=== PATIENT | female | born 1935 | race Caucasian/White ===

== ENCOUNTER 2018-09-16 13:48 | Emergency (ER) | payer OTHER ==
[2018-09-16 13:56] VITALS: BMI 21.4
[2018-09-16 15:47] LABS: BASO % 0.6 % (0-2.0); EOS % 0.1 % (0-4.5); HEMATOCRIT 39.4 % (32.4-45.2); HEMOGLOBIN 13.3 GM/dL (10.7-15.3); LYMPH % 14.1 % (8-40); MCHC 33.7 g/dl (32.0-36.0); MEAN CELL VOLUME 91.9 fl (80-96); MEAN PLT VOLUME 8.4 fl (7.5-11.1); MONO % 8.2 % (3.8-10.2); PLATELET COUNT 216 K/MM3 (134-434); RBC 4.29 M/mm3 (3.60-5.2); RDW 12.6 % (11.6-15.6); WHITE BLOOD COUNT 6.7 K/mm3 (4.0-10.0)
--- NOTE | 2018-09-16 16:14 | PDOC ---
History of Present Illness - General Chief Complaint: Nasal Bleeding Stated Complaint: NOSE BLEED Time Seen by Provider: 09/16/18 14:37 History Source: Patient Exam Limitations: No Limitations - History of Present Illness Initial Comments: 09/16/18 16:42 83f with pmh of hypothyroidism presents to the ED for now-resolved nosebleed of the left nare. Started this morning after she blew her nose. Upon the bleed non- stopping, she went to urgent care. by that time the bleeding had stopped but she was recommended to go to the ER just to be safe. No asymptomatic. Last episode of nose bleed was when she was many decades ago. Past History - Past Medical History Allergies/Adverse Reactions: Allergies Allergy/AdvReac Type Severity Reaction Status Date / Time No Known Allergies Allergy Verified 09/16/18 13:55 Home Medications: Ambulatory Orders Levothyroxine [Synthroid -] 75 mcg PO DAILY 09/16/18 COPD: No - Suicide/Smoking/Psychosocial Hx Smoking History: Never smoked Review of Systems - Review of Systems Able to Perform ROS?: Yes Is the patient limited Scottish proficient: No Constitutional: No: Symptoms Reported HEENTM: No: Symptoms Reported Respiratory: No: Symptoms reported Cardiac (ROS): No: Symptoms Reported ABD/GI: No: Symptoms Reported : No: Symptoms Reported Integumentary: No: Symptoms Reported, Erythema Neurological: No: Symptoms reported *Physical Exam - Vital Signs Last Vital Signs Temp Pulse Resp BP Pulse Ox 98 F 95 H 18 143/86 99 09/16/18 13:52 09/16/18 13:52 09/16/18 13:52 09/16/18 13:52 09/16/18 13:52 - Physical Exam General Appearance: Yes: Nourished, Appropriately Dressed. No: Apparent Distress HEENT: positive: EOMI, EDELMIRA, Other (dried blood in the left nare. ) Respiratory/Chest: positive: Lungs Clear, Normal Breath Sounds. negative: Chest Tender, Respiratory Distress Cardiovascular: positive: Regular Rhythm, Regular Rate, S1, S2 Gastrointestinal/Abdominal: positive: Normal Bowel Sounds, Flat, Soft. negative : Tender Musculoskeletal: positive: Normal Inspection. negative: CVA Tenderness Extremity: positive: Normal Capillary Refill, Normal Inspection, Normal Range of Motion Integumentary: positive: Normal Color, Dry, Warm Neurologic: positive: Fully Oriented, Alert, Normal Mood/Affect, Normal Response , Motor Strength /5 ED Treatment Course - LABORATORY CBC & Chemistry Diagram: 09/16/18 15:36 - ADDITIONAL ORDERS Additional order review: 09/16/18 15:36 RBC 4.29 MCV 91.9 MCHC 33.7 RDW 12.6 MPV 8.4 Neutrophils % 77.0 Lymphocytes % 14.1 Monocytes % 8.2 Eosinophils % 0.1 Basophils % 0.6 Medical Decision Making - Medical Decision Making 09/16/18 16:47 83F with resolved epistaxis. CBC negative for anemia. Will give patient recommendations for next episode as well as ENT referral. *DC/Admit/Observation/Transfer Diagnosis at time of Disposition: Epistaxis not due to trauma - Discharge Dispostion Disposition: HOME Condition at time of disposition: Improved Decision to Admit order: No - Referrals Referrals: Tash Acosta MD [Primary Care Provider] - Girma Cuellar MD [Staff Physician] - - Patient Instructions Printed Discharge Instructions: DI for Nosebleed Additional Instructions: Follow up with Dr. Cuellar, ENT within the next 4 days. Come back to the ER for any new, worsening or concerning symptoms. If nosebleed resumes, apply pressure for 5 minutes. Use vaseline to keep area from drying up. - Post Discharge Activity
--- NOTE | 2018-09-16 16:31 | PDOC ---
Attending Attestation - Resident Resident Name: Mina Leavitt - ED Attending Attestation I have performed the following: I have examined & evaluated the patient, The case was reviewed & discussed with the resident, I agree w/resident's findings & plan, Exceptions are as noted - HPI HPI: 09/16/18 16:29 83yo F hx hypothyroidsim presents to the ED with resolved nose bleed. Pt reports a nose bleed this morning after she was picking her nose. She then tried to blow her nose and the bleed got worse with clots prompting her to go to urgent care. The bleed lasted for about 3 hours and resolved on its own without intervention at urgent care. She presents to the ED because the clinician at urgent care stated to present to the ED to make sure she did not swallow too much blood. Pt currently feels well, has no complaints. Does not take any anticoagulation, takes an aspirin once in a while for headaches, most recently 1 week ago. Denies recent fevers, chills, cp, sob, abd pain, n/v/d, headache, trauma, weakness, dizziness. - Physicial Exam PE: 09/16/18 16:57 GENERAL: Awake, alert, and fully oriented, in no acute distress HEAD: No signs of trauma EYES: PERRLA, EOMI, sclera anicteric, conjunctiva clear ENT: +dried blood in L nare, no active bleeding, no bleeding in posterior OP LUNGS: Breath sounds equal, clear to auscultation bilaterally. No wheezes, and no crackles HEART: Regular rate and rhythm, normal S1 and S2, no murmurs, rubs or gallops ABDOMEN: Soft, nontender, normoactive bowel sounds. No guarding, no rebound. No masses EXTREMITIES: Normal range of motion, no edema. No clubbing or cyanosis. No cords, erythema, or tenderness NEUROLOGICAL: Normal speech, cranial nerves intact, 5/5 strength in all 4 extremities, normal sensation to light touch in all 4 extremities, normal gait SKIN: Warm, Dry, normal turgor, no rashes or lesions noted. - Medical Decision Making 09/16/18 17:00 83yo F hx hypothyroidism presents to the ED with resolved epistaxis 2/2 nose picking. Vitals wnl. Exam wnl. Pt feels well, requests DC home I discussed the physical exam findings, ancillary test results and final diagnoses with the patient. I answered all of the patient's questions. The patient was satisfied with the care received and felt comfortable with the discharge plan and treatment plan. The patient will call their primary care physician within 24 hours to arrange follow-up and will return to the Emergency Department with any new, persistent or worsening symptoms.
[2018-09-16 16:58] VITALS: BP 120/74; PULSE 80; TEMP 98.1
== END 2018-09-16 16:58 | disposition home or self-care (01) ==
LOC: JER 13:48
DX: R04.0 Epistaxis (principal); E03.9 Hypothyroidism, unspecified
CPT/HCPCS: 36415; 85025; 99283-25

== ENCOUNTER 2019-09-09 02:36 | Observation (INO) | payer OTHER ==
--- NOTE | 2019-09-09 03:37 | PDOC ---
Attending Attestation - Resident Resident Name: Sarita Mason - ED Attending Attestation I have performed the following: I have examined & evaluated the patient, The case was reviewed & discussed with the resident, I agree w/resident's findings & plan
--- NOTE | 2019-09-09 03:42 | PDOC ---
History of Present Illness - General Chief Complaint: Chest Pain Stated Complaint: CHEST PAIN History Source: Patient, Family - History of Present Illness Initial Comments: 09/09/19 03:37 84 yo F PMH of hypothyroidism presents to ED for sudden onset chest pain. pt states the chest pain began around 12 am it was sudden onset. pt describes it as sharp stabbing pain, non radiating. she states she also feels short of breath and wheezing. the shortness of breath began earlier in the evening. pt states that the chest pain only lasted a few minutes but the shortness of breath persisted. pt endorses orthopnea and dyspnea on exertion. Pt states she was at her rn care transition office this week and they sent her home with shelter monitor, she has not yet received those results. 09/09/19 03:43 Past History - Past Medical History Allergies/Adverse Reactions: Allergies Allergy/AdvReac Type Severity Reaction Status Date / Time No Known Allergies Allergy Verified 09/09/19 02:50 Home Medications: Ambulatory Orders Levothyroxine [Synthroid -] 75 mcg PO DAILY 09/16/18 COPD: No - Psycho Social/Smoking Cessation Hx Smoking History: Never smoked Have you smoked in the past 12 months: No Information on smoking cessation initiated: No Hx Alcohol Use: No Drug/Substance Use Hx: No Review of Systems - Review of Systems Able to Perform ROS?: Yes Constitutional: No: Chills, Fever Respiratory: Yes: Shortness of Breath, Wheezing. No: Productive cough Cardiac (ROS): Yes: Chest Pain. No: Lightheadedness ABD/GI: Yes: Abdominal Distended. No: Constipated, Diarrhea, Nausea, Vomiting Neurological: No: Headache, Dizziness *Physical Exam - Vital Signs Last Vital Signs Temp Pulse Resp BP Pulse Ox 97.2 F L 85 18 150/99 96 09/09/19 02:50 09/09/19 02:50 09/09/19 02:50 09/09/19 02:50 09/09/19 02:50 - Physical Exam General Appearance: Yes: Nourished, Appropriately Dressed HEENT: positive: EOMI, Normal Voice, Other (poor dentation) Respiratory/Chest: positive: Decreased Breath Sounds (at bases ). negative: Accessory Muscle Use, Crackles, Wheezing Cardiovascular: positive: Regular Rhythm, Regular Rate, S1, S2, JVD Gastrointestinal/Abdominal: positive: Soft, Protuberent. negative: Tender, Distended Extremity: positive: Normal Inspection Integumentary: positive: Normal Color, Dry, Warm Neurologic: positive: Fully Oriented ED Treatment Course - LABORATORY CBC & Chemistry Diagram: 09/09/19 04:24 09/09/19 04:24 - RADIOLOGY Radiology Studies Ordered: Category Date Time Status CHEST X-RAY PORTABLE* [RAD] Stat Radiology 09/09/19 03:28 Ordered Medical Decision Making - Medical Decision Making 09/09/19 03:42 84 yo F presenting with cp and shortness of breath r/o ACS -cardiac profile, EKG -CXR -CBC, CMP, Mg, Phos -TSH 09/09/19 03:43 09/09/19 04:48 -cbc reviewed, no leukocytosis 09/09/19 05:27 -bnp 691 -cxr reviewed -tele obs Discharge - Follow up/Referral Referrals: Tash Acosta MD [Primary Care Provider] - - Patient Discharge Instructions - Post Discharge Activity
[2019-09-09 04:32] LABS: BASO % 0.7 % (0-2.0); EOS % 0.5 % (0-4.5); HEMATOCRIT 37.1 % (32.4-45.2); HEMOGLOBIN 12.6 GM/dL (10.7-15.3); LYMPH % 16.2 % (8-40); MCH 31.4 pg (25.7-33.7); MCHC 34.1 g/dl (32.0-36.0); MEAN CELL VOLUME 92.2 fl (80-96); MEAN PLT VOLUME 8.2 fl (7.5-11.1); MONO % 7.1 % (3.8-10.2); NEUT % 75.5 % (42.8-82.8); PLATELET COUNT 223 K/MM3 (134-434); RBC 4.02 M/mm3 (3.60-5.2); RDW 12.4 % (11.6-15.6); WHITE BLOOD COUNT 8.5 K/mm3 (4.0-10.0)
[2019-09-09 05:02] LABS: ALBUMIN 3.6 g/dl (3.4-5.0); BILIRUBIN,TOTAL 0.8 mg/dL (0.2-1); BLOOD UREA NITROGEN 9.6 mg/dL (7-18); CALCIUM 9.2 mg/dL (8.5-10.1); CREATININE 0.6 mg/dL (0.55-1.3); MAGNESIUM 1.8 mg/dL (1.8-2.4); PHOSPHOROUS 2.7 mg/dL (2.5-4.9); POTASSIUM 4.1 mmol/L (3.5-5.1); TOT PROT 7.3 g/dl (6.4-8.2)
--- NOTE | 2019-09-09 05:51 | HP ---
Admitting History and Physical - Primary Care Physician PCP: Tash Acosta - Admission Chief Complaint: Chest Pain, SOB History of Present Illness: This is a 84 y/o woman with a PMhx of Hypothyroidism. Who presents to the ED with chest pain and SOB x am. Patient reports having left sided chest pain non- radiating with, belching, SOB, worse on exertion, before going to bed last night. She describes the pain as sharp, lasting for 5 minutes. Patient reports having BOYCE after walking a few blocks. Patient reports having the pain in the past but did not recall the date. Patient reports having a holter monitor last week for chest pain, but has not received the results. Patient denies fever, chills, dizziness, ANNE, palpitations, AP, N/V/D, melena, hematochezia, dysuria. History Source: Patient Limitations to Obtaining History: No Limitations - Past Medical History Endocrine: Yes: Hypothyroidism - Smoking History Smoking history: Never smoked Have you smoked in the past 12 months: No - Alcohol/Substance Use Hx Alcohol Use: No History of Substance Use: reports: None - Social History Usual Living Arrangement: Yes: With Spouse ADL: Independent History of Recent Travel: No Home Medications - Allergies Allergies/Adverse Reactions: Allergies Allergy/AdvReac Type Severity Reaction Status Date / Time No Known Allergies Allergy Verified 09/09/19 02:50 - Home Medications Home Medications: Ambulatory Orders Levothyroxine [Synthroid -] 75 mcg PO DAILY 09/16/18 Home Medications (free text): Mc Red 1 tablet po daily. Calcium Chewable 500mg po daily Family Medical History Family Hx Nuerologic Problems: Mother (Alzhemier's), Father (Alzheimer's) Review of Systems - Review of Systems Constitutional: reports: No Symptoms Eyes: reports: No Symptoms HENT: reports: No Symptoms Neck: reports: No Symptoms Cardiovascular: reports: Chest Pain, Edema, Shortness of Breath Respiratory: reports: SOB, SOB on Exertion Gastrointestinal: reports: Indigestion Genitourinary: reports: No Symptoms Breasts: reports: No Symptoms Reported Musculoskeletal: reports: No Symptoms Integumentary: reports: No Symptoms Neurological: reports: No Symptoms Endocrine: reports: No Symptoms Hematology/Lymphatic: reports: No Symptoms Psychiatric: reports: No Symptoms Pain Intensity: 5 Physical Examination Vital Signs: Vital Signs Temperature 97.2 F L 09/09/19 02:50 Pulse Rate 85 09/09/19 02:50 Respiratory Rate 18 09/09/19 02:50 Blood Pressure 150/99 09/09/19 02:50 O2 Sat by Pulse Oximetry (%) 96 09/09/19 02:50 Constitutional: Yes: No Distress, Calm, Thin Eyes: Yes: WNL, Conjunctiva Clear, EOM Intact HENT: Yes: WNL, Atraumatic, Normocephalic Neck: Yes: WNL, Supple, Trachea Midline Cardiovascular: Yes: WNL, Regular Rate and Rhythm, S1, S2 Respiratory: Yes: Rhonchi (RUL), SOB on Exertion Gastrointestinal: Yes: WNL, Normal Bowel Sounds, Soft Renal/: Yes: WNL Breast(s): Yes: WNL Musculoskeletal: Yes: WNL Extremities: Yes: WNL Edema: Yes Edema: LLE: 1+, RLE: Trace Peripheral Pulses WNL: Yes Neurological: Yes: WNL, Alert, Oriented, Cran Nerves II-XII Intact ...Motor Strength: WNL Psychiatric: Yes: WNL, Alert, Oriented Labs: CBC, BMP 09/09/19 04:24 09/09/19 04:24 Laboratory Results - last 24 hr 09/09/19 09/09/19 09/09/19 04:24 04:24 04:24 WBC 8.5 RBC 4.02 Hgb 12.6 Hct 37.1 MCV 92.2 MCH 31.4 MCHC 34.1 RDW 12.4 Plt Count 223 MPV 8.2 Absolute Neuts (auto) 6.4 Neutrophils % 75.5 Lymphocytes % 16.2 Monocytes % 7.1 Eosinophils % 0.5 D Basophils % 0.7 Nucleated RBC % 0 Sodium 132 L Potassium 4.1 Chloride 99 Carbon Dioxide 28 Anion Gap 5 L BUN 9.6 Creatinine 0.6 Est GFR (CKD-EPI)AfAm 96.33 Est GFR (CKD-EPI)NonAf 83.11 Random Glucose 109 H Calcium 9.2 Phosphorus 2.7 Magnesium 1.8 Total Bilirubin 0.8 AST 28 ALT 24 Alkaline Phosphatase 79 Creatine Kinase 179 Creatine Kinase Index 4.8 CK-MB (CK-2) 8.6 H Troponin I < 0.02 B-Natriuretic Peptide Total Protein 7.3 Albumin 3.6 TSH 1.50 09/09/19 04:24 WBC RBC Hgb Hct MCV MCH MCHC RDW Plt Count MPV Absolute Neuts (auto) Neutrophils % Lymphocytes % Monocytes % Eosinophils % Basophils % Nucleated RBC % Sodium Potassium Chloride Carbon Dioxide Anion Gap BUN Creatinine Est GFR (CKD-EPI)AfAm Est GFR (CKD-EPI)NonAf Random Glucose Calcium Phosphorus Magnesium Total Bilirubin AST ALT Alkaline Phosphatase Creatine Kinase Creatine Kinase Index CK-MB (CK-2) Troponin I B-Natriuretic Peptide 691.0 H Total Protein Albumin TSH Current Medications Generic Name Dose Route Start Last Admin Trade Name Freq PRN Reason Stop Dose Admin Aspirin 81 mg 09/09/19 10:00 Asa - PO DAILY BENJA Levothyroxine Sodium 75 mcg 09/09/19 07:00 Synthroid - PO DAILY@0700 BENJA Imaging - Results Chest X-ray: Image Reviewed EKG: Image Reviewed Problem List - Problems (1) Chest pain Assessment/Plan: r/o ACS Heart Score 4 Serial Enzymes, negx1 Appreciate Cardiology consult Asa 181mg taken before arrival to ED Asa EKG- SR with TWI lead III, AVF, no available study to compare Echo was done recently per patient Obtain Holter Monitor and Echo results from pts [employer] Observer- Dr. Lucero Johnson Chest Xray image reviewed Code(s): R07.9 - CHEST PAIN, UNSPECIFIED (2) Hypothyroidism Assessment/Plan: stable TSH 1.5 Continue Levothyroxine Code(s): E03.9 - HYPOTHYROIDISM, UNSPECIFIED Assessment/Plan This is a 84 y/o woman with a PMHx of Hypothroidism. placed in Telemetry Observation for Chest Pain r/o ACS for further evaluation of their emergent condition. Plan: See Problem List FEN Po fluids as tolerated Replete lytes prn Regular Diet DVT ppx OOB SCDs Consider AC if LOS > 48 hrs Code Status: Full Code Dispo: Observation Visit type - Emergency Visit Emergency Visit: Yes ED Registration Date: 09/09/19 Care time: The patient presented to the Emergency Department on the above date and was hospitalized for further evaluation of their emergent condition. - New Patient This patient is new to me today: Yes Date on this admission: 09/09/19 - Critical Care Critical Care patient: No
[2019-09-09] MEDS ORDERED: MAG HYDROX/AL HYDROX/SIMETH 30 ML UNIT-DOSE CUP PO ONE (06:00)
[2019-09-09] MEDS ORDERED: FAMOTIDINE 20 MG/50 ML IVPB 20 MG/50 ML MG IVPB ONE ×2 (06:00→06:04)
[2019-09-09] MEDS ORDERED: MAG HYDROX/AL HYDROX/SIMETH 30 ML UNIT-DOSE CUP ONE (06:02)
[2019-09-09 07:33] LABS: CHOLESTEROL 196 mg/dL (50-200); HDL CHOLESTEROL 87 mg/dL (40-60); LDL CHOLESTEROL (ONLY SJRH) 108 mg/dL (5-100); TRIGLYCERIDES 41 mg/dL (0-150)
[2019-09-09 07:38] VITALS: BMI 21.9
[2019-09-09] MEDS: LEVOTHYROXINE NA 75 MCG TABLET (FP) PO SCH (07:53)
[2019-09-09] MEDS: ASPIRIN 81 MG CHEWABLE TABLETS PO SCH (09:30)
[2019-09-09 10:11] LABS: MAGNESIUM 1.9 mg/dL (1.8-2.4); PHOSPHOROUS 2.7 mg/dL (2.5-4.9)
--- NOTE | 2019-09-09 10:29 | CON.CARD ---
Cardiology Consult (text) - Consultation Consultation Note: cc: cp hpi: 84 f hx hypothyroid here with cp. Yesterday was sitting and developed sharp, mild, left sided cp. Lasted for about 5 mins with some sob. Resolved and has been feeling well. No hx of cp. No palps dizzy loc pnd orthopnea le edema. pmh: per hpi psh: per hpi fam: no premature cad social: no tob ros: per hpi; +headache; all others nl meds: Ambulatory Orders Levothyroxine [Synthroid -] 75 mcg PO DAILY 09/16/18 pe: Vital Signs Period Temp Pulse Resp BP Sys/[place] Pulse Ox Last 24 Hr 97.2 F-98.3 F 75-85 18-20 150-157/99-103 93-96 nad no jvd rrr s1s2 no mrg cta bl nl eff aao3 no le e/c/c abd nt nd pos bs no jaundice diaphoresis pos dp pt no carotid bruits Laboratory Last Values WBC 8.5 K/mm3 (4.0-10.0) 09/09/19 04:24 RBC 4.02 M/mm3 (3.60-5.2) 09/09/19 04:24 Hgb 12.6 GM/dL (10.7-15.3) 09/09/19 04:24 Hct 37.1 % (32.4-45.2) 09/09/19 04:24 MCV 92.2 fl (80-96) 09/09/19 04:24 MCH 31.4 pg (25.7-33.7) 09/09/19 04:24 MCHC 34.1 g/dl (32.0-36.0) 09/09/19 04:24 RDW 12.4 % (11.6-15.6) 09/09/19 04:24 Plt Count 223 K/MM3 (134-434) 09/09/19 04:24 MPV 8.2 fl (7.5-11.1) 09/09/19 04:24 Absolute Neuts (auto) 6.4 K/mm3 (1.5-8.0) 09/09/19 04:24 Neutrophils % 75.5 % (42.8-82.8) 09/09/19 04:24 Lymphocytes % 16.2 % (8-40) 09/09/19 04:24 Monocytes % 7.1 % (3.8-10.2) 09/09/19 04:24 Eosinophils % 0.5 % (0-4.5) D 09/09/19 04:24 Basophils % 0.7 % (0-2.0) 09/09/19 04:24 Nucleated RBC % 0 % (0-0) 09/09/19 04:24 Sodium 132 mmol/L (136-145) L 09/09/19 04:24 Potassium 4.1 mmol/L (3.5-5.1) 09/09/19 04:24 Chloride 99 mmol/L (98-107) 09/09/19 04:24 Carbon Dioxide 28 mmol/L (21-32) 09/09/19 04:24 Anion Gap 5 MMOL/L (8-16) L 09/09/19 04:24 BUN 9.6 mg/dL (7-18) 09/09/19 04:24 Creatinine 0.6 mg/dL (0.55-1.3) 09/09/19 04:24 Est GFR (CKD-EPI)AfAm 96.33 09/09/19 04:24 Est GFR (CKD-EPI)NonAf 83.11 09/09/19 04:24 Random Glucose 109 mg/dL (74-106) H 09/09/19 04:24 Calcium 9.2 mg/dL (8.5-10.1) 09/09/19 04:24 Phosphorus 2.7 mg/dL (2.5-4.9) 09/09/19 09:35 Magnesium 1.9 mg/dL (1.8-2.4) 09/09/19 09:35 Total Bilirubin 0.8 mg/dL (0.2-1) 09/09/19 04:24 AST 28 U/L (15-37) 09/09/19 04:24 ALT 24 U/L (13-61) 09/09/19 04:24 Alkaline Phosphatase 79 U/L (45-117) 09/09/19 04:24 Creatine Kinase 179 U/L (26-192) 09/09/19 04:24 Creatine Kinase Index 4.8 % (0.0-5.0) 09/09/19 04:24 CK-MB (CK-2) 8.6 ng/mL (0.5-3.6) H 09/09/19 04:24 Troponin I < 0.02 ng/ml (0.00-0.05) 09/09/19 09:35 B-Natriuretic Peptide 691.0 pg/ml (5-450) H 09/09/19 04:24 Total Protein 7.3 g/dl (6.4-8.2) 09/09/19 04:24 Albumin 3.6 g/dl (3.4-5.0) 09/09/19 04:24 Triglycerides 41 mg/dL (0-150) 09/09/19 04:24 Cholesterol 196 mg/dL (50-200) 09/09/19 04:24 Total LDL Cholesterol 108 mg/dL (5-100) H 09/09/19 04:24 HDL Cholesterol 87 mg/dL (40-60) H 09/09/19 04:24 TSH 1.50 uIU/ml (0.358-3.74) 09/09/19 04:24 tele: sr, artifact ecg: sr nl intervals, no ischemic changes a/p: 84 f hx hypothyroid here with cp. cp, sob: -atypical cp, now resolved -no signs chf, sob better as well -no signs acs -ecg and trops benign -cont tele -will check echo and nuclear stress test hypothyroid: -tsh wnl on synthroid
--- NOTE | 2019-09-09 10:46 | PN ---
Progress Note (short form) - Note Progress Note: 84 yo lady with pmh of hypothyroidism admitted for left sided chest pain-pain resolved serial cardiac enzymes are negative will get echo and stress test in am dc planning if ok CBC, BMP 09/09/19 04:24 09/09/19 04:24 s1s2 rrr lungs cta abd soft distended non pitting ankle edema with extensive varicosities awake alert non focal exam
--- NOTE | 2019-09-09 10:50 | EKG ---
Test Reason : Blood Pressure : / mmHG Vent. Rate : 078 BPM Atrial Rate : 078 BPM P-R Int : 150 ms QRS Dur : 086 ms QT Int : 380 ms P-R-T Axes : 039 000 -01 degrees QTc Int : 433 ms NORMAL SINUS RHYTHM NORMAL ECG NO PREVIOUS ECGS AVAILABLE Confirmed by DEMETRIA LYLE MD ([id number]) on 09/09/2019 10:49:57 AM Referred By: Confirmed By:DEMETRIA LYLE MD
[2019-09-09 16:35] LABS: PH,URINE 7.5 (5.0-8.0); URINE APPEARANCE CLEAR; URINE BILIRUBIN NEGATIVE (NEGATIVE); URINE COLOR YELLOW; URINE GLUCOSE (UA) NEGATIVE (NEGATIVE); URINE KETONE NEGATIVE (NEGATIVE); URINE LEUK ESTERASE NEGATIVE (NEGATIVE); URINE NITRITE NEGATIVE (NEGATIVE); URINE PROTEIN NEGATIVE (NEGATIVE); URINE UROBILINOGEN 0.2 mg/dL (0.2-1.0)
[2019-09-09] MEDS ORDERED: cefTRIAXone SODIUM 1 GM VIAL ONE (17:26)
[2019-09-09] MEDS ORDERED: DEXTROSE 5%-WATER - 50 ML IVPB ONE (17:26)
[2019-09-09] MEDS: CEFTRIAXONE 1 GM in DEXTROSE 5%-WATER - 50 ML IVPB SCH (17:47)
[2019-09-10] MEDS: LEVOTHYROXINE NA 75 MCG TABLET (FP) PO SCH (06:29)
[2019-09-10 06:39] LABS: BASO % 0.6 % (0-2.0); EOS % 3.7 % (0-4.5); HEMATOCRIT 35.6 % (32.4-45.2); HEMOGLOBIN 12.1 GM/dL (10.7-15.3); LYMPH % 24.7 % (8-40); MCH 31.8 pg (25.7-33.7); MCHC 34.1 g/dl (32.0-36.0); MEAN CELL VOLUME 93.2 fl (80-96); MEAN PLT VOLUME 7.9 fl (7.5-11.1); MONO % 9.1 % (3.8-10.2); NEUT % 61.9 % (42.8-82.8); PLATELET COUNT 204 K/MM3 (134-434); RBC 3.83 M/mm3 (3.60-5.2); RDW 12.6 % (11.6-15.6); WHITE BLOOD COUNT 6.1 K/mm3 (4.0-10.0)
[2019-09-10 07:21] LABS: BLOOD UREA NITROGEN 10.9 mg/dL (7-18); CALCIUM 9.3 mg/dL (8.5-10.1); CREATININE 0.6 mg/dL (0.55-1.3); POTASSIUM 4.3 mmol/L (3.5-5.1)
--- NOTE | 2019-09-10 10:40 | ECHO ---
Name: PASHA ARAIZA Exam:Adult Echocardiogram Study Date: 09/10/2019 08:08 AM Age: 84 yrs Reason For Study: chest pain Height: 59 in Weight: 108 lb BSA: 1.4 m2 MMode/2D Measurements & Calculations RVDd: 2.2 cm Ao root diam: 4.2 cm IVSd: 0.66 cm LA dimension: 4.1 cm LVIDd: 4.7 cm ACS: 1.7 cm LVIDs: 2.8 cm LVPWd: 0.74 cm IVSs: 0.90 cm LVPWs: 0.99 cm EDV(Teich): 101.9 ml ESV(Teich): 29.6 ml Doppler Measurements & Calculations MV E max jonathan: 56.3 cm/sec Ao V2 max: 115.1 cm/sec MV A max jonathan: 98.7 cm/sec Ao max P.3 mmHg MV E/A: 0.57 Ao V2 mean: 88.3 cm/sec Ao mean P.4 mmHg Ao V2 VTI: 27.7 cm AI P1/2t: 639.5 msec AI max jonathan: 456.1 cm/sec MR max jonathan: 407.7 cm/sec AI max P.2 mmHg MR max P.5 mmHg AI dec slope: 208.9 cm/sec2 TR max jonathan: 211.4 cm/sec PI end-d jonathan: 85.5 cm/sec TR max P.0 mmHg Med Peak E' Jonathan: 5.2 cm/sec Med E/e': 10.9 Lat Peak E' Jonathan: 8.2 cm/sec Lat E/e': 6.8 Procedure A complete two-dimensional transthoracic echocardiogram was performed (2D, M-mode, Doppler and color flow Doppler). Left Ventricle The left ventricle is normal in size. Left ventricular systolic function is normal. Ejection Fraction = 60- 65%. Grade I diastolic dysfunction, (abnormal relaxation pattern). Ratio E/E'= 11. No regional wall m otion abnormalities noted. Right Ventricle The right ventricle is normal size. The right ventricular systolic function is normal. Atria The left atrial size is normal. Right atrial size is normal. Mitral Valve There is moderate mitral annular calcification. There is mild mitral regurgitation. Tricuspid Valve The tricuspid valve is normal in structure and function. There is moderate tricuspid regurgitation. P ulmonary artery systolic pressure is at least 26 mmHg if RA pressure is assumed 3 mmHg. Aortic Valve There is mild to moderate aortic sclerosis.;. Mild aortic regurgitation. Pulmonic Valve The pulmonic valve is not well visualized. Mild pulmonic valvular regurgitation. Great Vessels Moderate aortic root dilatation. Pericardium/Pleura There is no pericardial effusion. Interpretation Summary The left ventricle is normal in size. Left ventricular systolic function is normal. No regional wall motion abnormalities noted. Ejection Fraction = 60-65%. Grade I diastolic dysfunction, (abnormal relaxation pattern). Ratio E/E'= 11 The right ventricular systolic function is normal. The left atrial size is normal. Right atrial size is normal. There is moderate mitral annular calcification. There is mild mitral regurgitation. There is moderate tricuspid regurgitation. Pulmonary artery systolic pressure is at least 26 mmHg if RA pressure is assumed 3 mmHg There is mild to moderate aortic sclerosis. Mild aortic regurgitation. Mild pulmonic valvular regurgitation. Moderate aortic root dilatation. There is no pericardial effusion. Previous study is not availble for comparison Dimitry Leary MD 09/10/2019 10:40 AM
[2019-09-10] MEDS ORDERED: REGADENOSON 0.4 MG/5 ML PRE-FILLED SYRINGE IVPUSH ONE ×2 (10:50→11:00)
--- NOTE | 2019-09-10 11:51 | CON.PULM ---
Consult Consult Specialty:: PULM/CCM Referred by:: KEIRA Reason for Consultation:: PNA - History of Present Illness Chief Complaint: CP History of Present Illness: 84 F, past medical history of hypothyroidism. Admitted via the ER due to chest pain and SOB x 1 days duration. She reports that the pain was on the left side of the chest but was non-radiating. She felt her symptoms were worse with exertion. No travel history or sick contacts. She reports subjective feeling of fever and possible chills. She also developed nasal congestion with copious dark secretions that was tinged with blood. No ganga hemoptysis or night night sweats. CXR: Possible RLL infiltrate - History Source History Provided By: Patient Limitations to Obtaining History: No Limitations - Past Medical History Pulmonary: Yes: Bronchitis. No: Asthma, Cancer, COPD, O2 Dependent, Pneumonia, Previously Intubated, Pulmonary Embolus, Pulmonary Fibrosis, Sleep Apnea Endocrine: Yes: Hypothyroidism - Alcohol/Substance Use Hx Alcohol Use: No History of Substance Use: reports: None - Smoking History Smoking history: Never smoked Have you smoked in the past 12 months: No - Social History ADL: Independent History of Recent Travel: No Home Medications - Allergies Allergies/Adverse Reactions: Allergies Allergy/AdvReac Type Severity Reaction Status Date / Time No Known Allergies Allergy Verified 09/09/19 02:50 - Home Medications Home Medications: Ambulatory Orders Levothyroxine [Synthroid -] 75 mcg PO DAILY 09/16/18 Review of Systems - Review of Systems Constitutional: reports: Chills, Fever, Malaise. denies: Night Sweats Eyes: reports: No Symptoms HENT: reports: No Symptoms Neck: reports: No Symptoms Cardiovascular: reports: Chest Pain, Shortness of Breath. denies: Edema, Palpitations Respiratory: reports: Cough, SOB, SOB on Exertion. denies: Hemoptysis, PND, Snoring, Wheezing Gastrointestinal: reports: No Symptoms Genitourinary: reports: No Symptoms Breasts: reports: No Symptoms Reported Musculoskeletal: reports: No Symptoms Integumentary: reports: No Symptoms Neurological: reports: No Symptoms Endocrine: reports: No Symptoms Hematology/Lymphatic: reports: No Symptoms Psychiatric: reports: No Symptoms Physical Exam Vital Sings: Vital Signs Temperature 98.4 F 09/10/19 07:55 Pulse Rate 65 09/10/19 07:55 Respiratory Rate 18 09/10/19 07:55 Blood Pressure 123/58 L 09/10/19 07:55 O2 Sat by Pulse Oximetry (%) 96 09/10/19 08:01 Constitutional: Yes: No Distress, Anxious Eyes: Yes: Conjunctiva Clear, EOM Intact HENT: Yes: Atraumatic, Normocephalic Neck: Yes: Supple, Trachea Midline Cardiovascular: Yes: Regular Rate and Rhythm Respiratory: Yes: Cough, Diminished, Rhonchi. No: Accessory Muscle Use, Rales, SOB, SOB on Exertion, Stridor, Tachypnea, Wheezes ...Inspection: Yes: WNL ...Clubbing: No Gastrointestinal: Yes: Normal Bowel Sounds, Soft Renal/: Yes: WNL Musculoskeletal: Yes: WNL Extremities: Yes: WNL Edema: No Peripheral Pulses WNL: Yes Integumentary: Yes: WNL Neurological: Yes: WNL, Alert, Oriented ...Motor Strength: WNL Psychiatric: Yes: WNL, Alert, Oriented Labs: CBC, BMP 09/10/19 06:16 09/10/19 06:16 Imaging - Results Chest X-ray: Report Reviewed, Image Reviewed Problem List - Problems (1) Pneumonia Code(s): J18.9 - PNEUMONIA, UNSPECIFIED ORGANISM (2) Chest pain Code(s): R07.9 - CHEST PAIN, UNSPECIFIED (3) Hypothyroidism Code(s): E03.9 - HYPOTHYROIDISM, UNSPECIFIED (4) Epistaxis not due to trauma Code(s): R04.0 - EPISTAXIS Assessment/Plan Ceftriaxone OD O2 as needed Check urine antigen Check sputum Monitor for hemoptysis VTE prophylaxis No smoking No indication for systemic steroids Will follow Thank you. Dr Marroquin
[2019-09-10] MEDS ORDERED: cefTRIAXone SODIUM 1 GM VIAL ONE (12:46)
[2019-09-10] MEDS ORDERED: DEXTROSE 5%-WATER - 50 ML IVPB ONE (12:46)
[2019-09-10] MEDS: CEFTRIAXONE 1 GM in DEXTROSE 5%-WATER - 50 ML IVPB SCH (12:49)
[2019-09-10] MEDS: ASPIRIN 81 MG CHEWABLE TABLETS PO SCH (12:50)
--- NOTE | 2019-09-10 15:50 | PN ---
Progress Note (short form) - Note Progress Note: s: no chest pain, palps, dizziness, dyspnea Current Medications Aspirin (Asa -) 81 mg PO DAILY [facility] Last Admin: 09/10/19 12:50 Dose: 81 mg Ceftriaxone Sodium 1 gm/ (Dextrose) 50 mls @ 100 mls/hr IVPB DAILY [facility] Last Admin: 09/10/19 12:49 Dose: 100 mls/hr Levothyroxine Sodium (Synthroid -) 75 mcg PO DAILY@0700 [facility] Last Admin: 09/10/19 06:29 Dose: 75 mcg Vital Signs Period Temp Pulse Resp BP Sys/[place] Pulse Ox Last 24 Hr 98.1 F-98.9 F 65-91 16-20 98-161/58-92 95-96 nad no jvd rrr s1s2 no mrg cta bl nl eff aao3 no le e/c/c abd nt nd pos bs no jaundice diaphoresis pos dp pt no carotid bruits tele: sr, artifact ecg: sr nl intervals, no ischemic changes echo 08/2019 nl LV/RV function, impaired relaxation, mild MR, mild AR, mod aortic root dilation (4.2 cm) mibi 08/2019 no ischemia a/p: 84 f hx hypothyroid here with cp. cp, sob: -atypical cp, now resolved -no signs chf, sob better as well -no signs acs -ecg and trops benign - echo unremarkable for age, mibi no ischemia - no further cardiac testing - can dc tele hypothyroid: -tsh wnl on synthroid
[2019-09-11] MEDS: LEVOTHYROXINE NA 75 MCG TABLET (FP) PO SCH (06:42)
[2019-09-11] MEDS ORDERED: DEXTROSE 5%-WATER - 50 ML IVPB ONE (10:00)
[2019-09-11] MEDS ORDERED: cefTRIAXone SODIUM 1 GM VIAL ONE (10:00)
[2019-09-11] MEDS: CEFTRIAXONE 1 GM in DEXTROSE 5%-WATER - 50 ML IVPB SCH (10:05)
[2019-09-11] MEDS: ASPIRIN 81 MG CHEWABLE TABLETS PO SCH (10:05)
--- NOTE | 2019-09-11 11:02 | PN ---
Progress Note (short form) - Note Progress Note: s: no chest pain, palps, dizziness, dyspnea. had pain in R upper chest/R arm last night, now resolved. Current Medications Aspirin (Asa -) 81 mg PO DAILY [facility] Last Admin: 09/11/19 10:05 Dose: 81 mg Ceftriaxone Sodium 1 gm/ (Dextrose) 50 mls @ 100 mls/hr IVPB DAILY [facility] Last Admin: 09/11/19 10:05 Dose: 100 mls/hr Levothyroxine Sodium (Synthroid -) 75 mcg PO DAILY@0700 [facility] Last Admin: 09/11/19 06:42 Dose: 75 mcg Vital Signs Period Temp Pulse Resp BP Sys/[place] Pulse Ox Last 24 Hr 97.3 F-98.1 F 63-78 16-18 98-138/60-72 94 nad no jvd rrr s1s2 no mrg cta bl nl eff aao3 no le e/c/c abd nt nd pos bs no jaundice diaphoresis pos dp pt no carotid bruits ecg: sr nl intervals, no ischemic changes echo 08/2019 nl LV/RV function, impaired relaxation, mild MR, mild AR, mod aortic root dilation (4.2 cm) mibi 08/2019 no ischemia a/p: 84 f hx hypothyroid here with cp. cp, sob: -atypical cp -no signs chf, sob better as well -no signs acs -ecg and trops benign - echo unremarkable for age, mibi no ischemia - no further cardiac testing hypothyroid: -tsh wnl on synthroid stable for dc from cardiac perspective
--- NOTE | 2019-09-11 12:09 | DS ---
Physical Examination Vital Signs: Vital Signs Temperature 98.0 F 09/11/19 08:25 Pulse Rate 68 09/11/19 08:25 Respiratory Rate 18 09/11/19 08:25 Blood Pressure 138/66 09/11/19 08:25 O2 Sat by Pulse Oximetry (%) 94 L 09/10/19 21:00 Constitutional: Yes: No Distress, Calm Eyes: Yes: EOM Intact HENT: Yes: Normocephalic Neck: Yes: Decreased ROM Cardiovascular: Yes: Regular Rate and Rhythm Respiratory: Yes: CTA Bilaterally, Rales (coarse at bases) Gastrointestinal: Yes: Normal Bowel Sounds, Soft Edema: No Peripheral Pulses WNL: Yes Neurological: Yes: WNL Labs: CBC, BMP 09/10/19 06:16 09/10/19 06:16 Discharge Summary Problems reviewed: Yes Reason For Visit: chest pain Current Active Problems Chest pain (Acute) Hypothyroidism (Acute) Pneumonia (Acute) Hospital Course: admitted for atypical chest pain, malaise and cough echo, nuclear stress test reviewed, unremarkable cxr possible pna-no fever, no leukocytosis feeling well, good appetite medically stable to dc home on oral abx repeat cxr in 1 month Condition: Fair - Instructions Diet, Activity, Other Instructions: follow up with in 2 days Referrals: Tash Acosta MD [Primary Care Provider] - Disposition: HOME - Home Medications Comprehensive Discharge Medication List: Ambulatory Orders Levothyroxine [Synthroid -] 75 mcg PO DAILY 09/16/18
--- NOTE | 2019-09-11 12:21 | PN ---
Progress Note, Physician History of Present Illness: PULMONARY ALERT,OOB-CHAIR,-SOB,-COUGH - Current Medication List Current Medications: Active Medications Aspirin (Asa -) 81 mg PO DAILY [facility] Last Admin: 09/11/19 10:05 Dose: 81 mg Ceftriaxone Sodium 1 gm/ (Dextrose) 50 mls @ 100 mls/hr IVPB DAILY [facility] Last Admin: 09/11/19 10:05 Dose: 100 mls/hr Levothyroxine Sodium (Synthroid -) 75 mcg PO DAILY@0700 [facility] Last Admin: 09/11/19 06:42 Dose: 75 mcg - Objective Vital Signs: Vital Signs Temperature 98.0 F 09/11/19 08:25 Pulse Rate 68 09/11/19 08:25 Respiratory Rate 18 09/11/19 08:25 Blood Pressure 138/66 09/11/19 08:25 O2 Sat by Pulse Oximetry (%) 94 L 09/10/19 21:00 Constitutional: Yes: Calm, Thin Eyes: Yes: WNL HENT: Yes: WNL Neck: Yes: WNL Cardiovascular: Yes: Regular Rate and Rhythm, S1, S2 Respiratory: Yes: Rales (CRACKLES ON LEFT 1/3UP) Gastrointestinal: Yes: Normal Bowel Sounds, Soft Extremities: Yes: WNL Edema: No Labs: CBC, BMP Assessment/Plan Problem List - Problems (1) Pneumonia Code(s): J18.9 - PNEUMONIA, UNSPECIFIED ORGANISM (2) Chest pain Code(s): R07.9 - CHEST PAIN, UNSPECIFIED (3) Hypothyroidism Code(s): E03.9 - HYPOTHYROIDISM, UNSPECIFIED (4) Epistaxis not due to trauma Code(s): R04.0 - EPISTAXIS Assessment/Plan Ceftriaxone OD O2 as needed Check urine antigen Check sputum Monitor for hemoptysis VTE prophylaxis No smoking Chest x-ray today DR MALCOLM
[2019-09-11 14:01] VITALS: BP 136/80; PULSE 73; TEMP 98.6
--- NOTE | 2019-09-12 12:18 | EKG ---
Test Reason : Blood Pressure : / mmHG Vent. Rate : 083 BPM Atrial Rate : 083 BPM P-R Int : 142 ms QRS Dur : 090 ms QT Int : 378 ms P-R-T Axes : 044 001 008 degrees QTc Int : 444 ms NORMAL SINUS RHYTHM NORMAL ECG WHEN COMPARED WITH ECG OF 09-SEP-2019 02:57, NO SIGNIFICANT CHANGE WAS FOUND Confirmed by JOE LEONARDO MD ([id number]) on 09/12/2019 12:18:29 PM Referred By: Confirmed By:JOE LEONARDO MD
== END 2019-09-11 15:09 | disposition home or self-care (01) ==
LOC: JER 02:36 → JERBED 05:38 → J4S 06:17
PROVIDERS: ADMIT Internal Medicine; ATTEND Internal Medicine
PROC: 3E03329 Introduction of Other Anti-infective into Peripheral Vein, Percutaneous Approach (ICD-10-PCS; principal; 2019-09-09)
PROC: 3E033GC Introduction of Other Therapeutic Substance into Peripheral Vein, Percutaneous Approach (ICD-10-PCS; 2019-09-09)
DX: J18.9 Pneumonia, unspecified organism (principal); R07.89 Other chest pain; E03.9 Hypothyroidism, unspecified; R04.0 Epistaxis; R06.02 Shortness of breath
CPT/HCPCS: 36415; 71045-TC-FY; 71046-TC-FY; 78452-TC; 80048; 80053; 80061; 81003; 82550; 82553; 83721; 83735; 83880; 84100; 84443; 84484; 85025; 87070; 87086; 87205; 87899; 93005; 93010; 93017; 93306-TC; 96365; 96375; 99283-25; A9502; G0378; J2785